=== PATIENT | female | born 1980 | race Caucasian/White ===

== ENCOUNTER → 2016-10-31 | Outpatient (CLI) | payer OTHER | LOC: BHSO 10:56 | DX: F41.1 Generalized anxiety disorder (principal) | CPT/HCPCS: 90791-AI ==

== ENCOUNTER → 2016-12-21 | Outpatient (CLI) | payer OTHER | LOC: BHSO 15:12 | DX: F41.1 Generalized anxiety disorder (principal) ==

== ENCOUNTER → 2017-01-22 | Outpatient (CLI) | payer OTHER | LOC: BHSO 15:31 | DX: F41.1 Generalized anxiety disorder (principal) ==

== ENCOUNTER → 2017-03-20 | Outpatient (CLI) | payer OTHER | LOC: BHSO 15:26 | DX: F41.1 Generalized anxiety disorder (principal) ==

== ENCOUNTER → 2017-05-10 | Outpatient (CLI) | payer OTHER | LOC: BHSO 10:22 | DX: F41.0 Panic disorder [episodic paroxysmal anxiety] (principal) ==

== ENCOUNTER → 2017-06-13 | Outpatient (CLI) | payer OTHER | LOC: BHSO 10:35 | DX: F41.0 Panic disorder [episodic paroxysmal anxiety] (principal) ==

== ENCOUNTER → 2017-08-08 | Outpatient (CLI) | payer OTHER | LOC: BHSO 08:29 | DX: F33.1 Major depressive disorder, recurrent, moderate (principal) | CPT/HCPCS: G0463 ==